=== PATIENT | male | born 1940 | race Caucasian/White ===

== ENCOUNTER 2016-06-20 06:04 | Day surgery (SDC) | payer MEDICARE, OTHER ==
[2016-06-14 10:42] LABS: HEMATOCRIT 36.1 % (37.9-51.0); HEMOGLOBIN 12.3 g/dL (13.5-17.0); HGB HCT DIFFERENCE 0.8; MEAN CORPUSCULAR HGB CONC 34.1 g/dL (32.0-36.0); MEAN CORPUSCULAR VOLUME 85 fl (80-97); RED BLOOD COUNT 4.24 10^6/uL (4.35-5.55); RED CELL DISTRIBUTION WIDTH 14.7 % (11.5-14.0); WHITE BLOOD COUNT 5.9 10^3/uL (4.0-10.5)
[2016-06-14 11:13] LABS: ANION GAP 13 (5-19); BLOOD UREA NITROGEN 31 mg/dL (7-20); CALCIUM 10.5 mg/dL (8.4-10.2); CARBON DIOXIDE 27 mmol/L (22-30); CHLORIDE 103 mmol/L (98-107); CREATININE RESULT 1.52 mg/dL (0.52-1.25); GLUCOSE 125 mg/dL (75-110); SODIUM 142.9 mmol/L (137-145)
--- NOTE | 2016-06-14 14:10 | EKG REPORT ---
SEVERITY:- DEFECTIVE ECG - SINUS RHYTHM. PT HAS SITUS INVERSUS AND DEXTROCARDIA. FIRST DEGREE AV BLOCK NONSPECIFIC T ABNORMALITIES, INFERIOR LEADS UNCHANGED. : Confirmed by: Zak Marroquin MD 14-Jun-2016 14:10:20
[~2016-06-20 06:04] MED LIST: CEFAZOLIN 1 GM/D5W RTU 1 GM/50 ML RTUPB IV PRN; LACTATED RINGERS 1000 ML IV PRN; LIDOCAINE 0.5% INJ-PF (5 MG/ML) 50 ML SDV SUBCUT PRN
[2016-06-20] MEDS ORDERED: LIDOCAINE 1%/EPINEPHRINE INJ 20 ML VIAL ONE (06:55)
[2016-06-20] MEDS ORDERED: SODIUM BICARBONATE 8.4% INJ 50 MEQ/50 ML DISP.SYRIN ONE (06:55)
[2016-06-20] MEDS ORDERED: FENTANYL CITRATE INJ/PF 100 MCG/2 ML AMPUL ONE (07:15)
[2016-06-20] MEDS ORDERED: PROPOFOL INJ 200 MG/20 ML VIAL IV ONE (07:16)
[2016-06-20] MEDS ORDERED: DEXMEDETOMIDINE INJ 80 MCG/20 ML VIAL IV ONE (07:16)
[2016-06-20] MEDS ORDERED: MIDAZOLAM 2 MG/2 ML INJ ONE (07:16)
[2016-06-20] MEDS ORDERED: KETAMINE HCL INJ 500 MG/10 ML VIAL ONE (08:20)
[2016-06-20] MEDS ORDERED: PROMETHAZINE HCL INJ 25 MG/1 ML VIAL IV PRN ×2 (08:39)
[2016-06-20] MEDS ORDERED: DIPHENHYDRAMINE HCL 50 MG/ML VIAL IV PRN (08:39)
[2016-06-20] MEDS ORDERED: FENTANYL CITRATE INJ/PF 100 MCG/2 ML AMPUL IV PRN ×3 (08:39)
[2016-06-20] MEDS ORDERED: MEPERIDINE HCL/PF INJ 25 MG/1 ML DISP.SYRIN IV PRN (08:39)
[2016-06-20] MEDS ORDERED: MORPHINE SULFATE 10 MG/ML INJ IV PRN (08:39)
[2016-06-20] MEDS ORDERED: OXYCODONE-ACETAMINOPHEN 5-325 MG TABLET PO PRN ×2 (08:39)
--- NOTE | 2016-06-20 09:41 | Operative Report ---
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 Patient was brought into the operating room and placed on the operating room table in a supine position. Patient was then prepped with a Betadine scrub and Betadine solution and draped in a sterile and aseptic manner. The area was then marked. 12 O'clock was marked towards the upper neck 3 O'clock was marked towards the left side 6:00 was marked towards the lower chest 9:00 was marked towards the right side The area was then anesthetized with 1% lidocaine with epinephrine and bicarbonate for its anesthetic and hemostatic effects. The area was then excised and marked at 12:00. We had considered a primary closure but this would go against the natural relaxed skin tension lines. A primary closure would be too tight and would have increased chance of dehiscence. This will leave more of a scar so we decided to use a boomerang flap reconstruction which would camouflage the scar better and take tension off of the closure so that would be less chances of complications. It was also decided to use this type of flap so that we would have the least amount of distortion of his horizontal wrinkles of his neck. Without creating the flap this would cause a distortion of the horizontal lines and make this very obvious. Flap allowed us to bring tissue from the chest up into the neck and stabilize this so that it would not distort the neck and used the excess that we can harvest from the chest. Then went ahead and outlined the flap and anesthetized it. Then incised the flap and developed a flap maintaining the subdermal plexus. Then we undermined 360 to allow for plate like scarring and minimize trap door deformity. Throughout the case hemostasis was achieved with the bipolar. We then sutured the flap into its new position Using 3-0 Vicryl for the subcutaneous and deep dermis. Skin was closed with a subcuticular stitch using 3-0 PDS with knots being tied on the outside. And 3-0 PDS suture was used for support and placed in the central area of the incision. We then applied tincture benzoin and Steri-Strips followed by a light pressure dressing. Patient was then reversed from anesthesia and taken to the [facility] for recovery. The patient tolerated well. There were no complications. Lesion size was proximally 3.7 cm please see pathology for actual size. Portions of this note may be dictated using [employer] voice recognition software. Occasional variations and spelling and vocabulary could be possible and are unintentional. Additionally, there is a chance that some errors may not be caught or corrected. Please notify the offer of any discrepancies noted or if any statements are unclear. Subjective: No complaints Objective: Vital signs stable afebrile No bleeding Dressing intact Assessment and plan: Doing well. Elevate the operative site. Resume medications. Take antibiotics for 1 day Follow-up Full instructions were given to the patient and family and they understand Portions of this note may be dictated using [employer] voice recognition software. Occasional variations and spelling and vocabulary could be possible and are unintentional. Additionally, there is a chance that some errors may not be caught or corrected. Please notify the offer of any discrepancies noted or if any statements are unclear.
--- NOTE | 2016-06-20 09:43 | PDOC DISCHARGE SUMMARY ---
Discharge Summary (SDC) - Discharge Final Diagnosis: Basal squamous cell carcinoma and basal cell carcinoma of the medial clavicle region Date of Surgery: 06/20/16 Condition: Good Treatment or Instructions: Leave the top dressing on for 2 days, then removed. Leave the steri-strip tapes on for 5 days, then removal. Then cleaning wound with peroxide and apply Neosporin/bacitracin 3 times per day. Antibiotics for 1 day, then discontinue. Elevate operative area to decrease swelling. Do not strain, or lift heavy objects. Call for excessive bleeding, increased temperature of 101, uncontrolled pain, or excessive nausea or vomiting. You may reach Dr. Easton through his office at [phone]. In the event of an emergency after hours, then contact Dr. Easton through [facility]. Return to the office for a postop check on . The time will be scheduled by the nursing staff of [facility] prior to discharge. Please give the patient a copy of their labs and EKG so they can bring this to their PMD. Thank you Portions of this note may be dictated using [employer] voice recognition software. Occasional variations and spelling and vocabulary could be possible and are unintentional. Additionally, there is a chance that some errors may not be caught or corrected. Please notify the offer of any discrepancies noted or if any statements are unclear. Discharge Diet: As Tolerated Discharge Activity: No Lifting/Push/Pulling, Slowly Increase Activity Report the Following to Your Physician Immediately: Unusual Bleeding - Discharged on, Increased Soreness
[2016-06-20 12:00] VITALS: BP 122/64
[2016-06-20] MEDS ORDERED: GLYCOPYRROLATE INJ 0.4 MG/2 ML VIAL ONE (14:29)
[2016-06-20] MEDS ORDERED: LIDOCAINE 2% INJ-PF (20 MG/ML) 10 ML AMPUL ONE (14:29)
== END 2016-06-20 11:25 | disposition home or self-care (01) ==
LOC: OROUT 06:04
PROVIDERS: ATTEND Plastic Surgery
PROC: 0HB5XZZ Excision of Chest Skin, External Approach (ICD-10-PCS; 2016-06-20)
PROC: 0HX5XZZ Transfer Chest Skin, External Approach (ICD-10-PCS; principal; 2016-06-20 08:00)
DX: C44.519 Basal cell carcinoma of skin of other part of trunk (principal); C44.529 Squamous cell carcinoma of skin of other part of trunk; E11.9 Type 2 diabetes mellitus without complications; I10 Essential (primary) hypertension; M19.90 Unspecified osteoarthritis, unspecified site; Z79.01 Long term (current) use of anticoagulants; Z79.899 Other long term (current) drug therapy; Z79.82 Long term (current) use of aspirin; Z79.84 Long term (current) use of oral hypoglycemic drugs
CPT/HCPCS: 93005; 36415 ×2; 82962; 84132; 85027; 85610; 85730; 80048; 88305 ×2; 88331 ×2; 88332 ×2; 93010; 14000; J2250; J0690; J3490 ×5; J2704; 450; J3010

== ENCOUNTER 2018-01-22 08:21 | Day surgery (SDC) | payer MEDICARE, OTHER ==
[2018-01-08 11:46] LABS: INTERNATIONAL RATION (INR) 0.91; PARTIAL THROMBOPLASTIN TIME 32.3 SEC (23.5-35.8); PROTHROMBIN TIME 12.7 SEC (11.4-15.4)
--- NOTE | 2018-01-08 13:17 | EKG REPORT ---
SEVERITY:- ABNORMAL ECG - SINUS OR ECTOPIC ATRIAL RHYTHM FIRST DEGREE AV BLOCK CONSIDER DEXTROCARDIA : Confirmed by: Zak Marroquin MD 08-Jan-2018 13:17:08
[~2018-01-22 08:21] MED LIST changes: +CEFAZOLIN 1 GM/D5W RTU 1 GM/50 ML RTUPB IV ONE; +LIDOCAINE 1%/EPINEPHRINE INJ 20 ML VIAL ONE; +POVIDONE-IODINE 5% OPH PREP SOLN 30 ML ONE; +SODIUM BICARBONATE 8.4% INJ 50 MEQ/50 ML DISP.SYRIN ONE
[2018-01-22 09:02] LABS: HEMATOCRIT 33.3 % (37.9-51.0); HEMOGLOBIN 11.3 g/dL (13.5-17.0); MEAN CORPUSCULAR HEMOGLOBIN 29.8 pg (27.0-33.4); MEAN CORPUSCULAR HGB CONC 33.9 g/dL (32.0-36.0); MEAN CORPUSCULAR VOLUME 88 fl (80-97); PLATELET COUNT 273 10^3/uL (150-450); RED BLOOD COUNT 3.78 10^6/uL (4.35-5.55); RED CELL DISTRIBUTION WIDTH 14.1 % (11.5-14.0); WHITE BLOOD COUNT 5.1 10^3/uL (4.0-10.5)
[2018-01-22 09:42] LABS: ANION GAP 10 (5-19); BLOOD UREA NITROGEN 33 mg/dL (7-20); CALCIUM 9.5 mg/dL (8.4-10.2); CARBON DIOXIDE 26 mmol/L (22-30); CHLORIDE 103 mmol/L (98-107); GLUCOSE 130 mg/dL (75-110); POTASSIUM 4.6 mmol/L (3.6-5.0)
[2018-01-22] MEDS ORDERED: KETAMINE HCL INJ 500 MG/10 ML VIAL ONE (10:33)
[2018-01-22] MEDS ORDERED: EPHEDRINE SULFATE INJ 50 MG/1 ML AMPULE ONE (10:34)
[2018-01-22] MEDS ORDERED: FENTANYL CITRATE INJ/PF 100 MCG/2 ML AMPUL ONE (10:34)
[2018-01-22] MEDS ORDERED: ACETAMINOPHEN 1,000 MG/100 ML RTUPB IV ONE (10:34)
[2018-01-22] MEDS ORDERED: MIDAZOLAM 2 MG/2 ML INJ ONE (10:34)
[2018-01-22] MEDS ORDERED: PROPOFOL INJ 200 MG/20 ML VIAL IV ONE ×2 (10:34→10:35)
[2018-01-22] MEDS ORDERED: ONDANSETRON HCL INJ/PF 4 MG/2 ML SDV IV PRN (12:12)
[2018-01-22] MEDS ORDERED: DIPHENHYDRAMINE HCL 50 MG/ML VIAL IV PRN (12:12)
[2018-01-22] MEDS ORDERED: PROMETHAZINE HCL INJ 25 MG/1 ML VIAL IV PRN (12:12)
[2018-01-22] MEDS ORDERED: FENTANYL CITRATE INJ/PF 100 MCG/2 ML AMPUL IV PRN ×3 (12:12)
[2018-01-22] MEDS ORDERED: MEPERIDINE HCL/PF INJ 25 MG/1 ML DISP.SYRIN IV PRN (12:12)
--- NOTE | 2018-01-22 12:37 | Operative Report ---
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 Patient was brought into the operating room and placed on the operating room table in a supine position. Patient was then prepped with a Betadine scrub and Betadine solution and draped in a sterile and aseptic manner. The area was then marked. 12 O'clock was marked towards the forehead scalp 3 O'clock was marked towards the ear 6:00 was marked towards the gel 9:00 was marked towards the medial canthus The area was then anesthetized with 1% lidocaine with epinephrine and bicarbonate for its anesthetic and hemostatic effects. The area was then excised and marked at 12:00. The specimen was sent for frozen section. The results came back that the deep and lateral margins were free. We had considered a primary closure but this would go against the natural relaxed skin tension lines. A primary closure would be too tight and would have increased chance of dehiscence. This will leave more of a scar so we decided to use a O to S flap reconstruction which would camouflage the scar better and take tension off of the closure so that would be less chances of complications. This flap would allow us to create a reconstruction that angles towards the lateral forehead right wrinkle lines and the base of the reconstruction will fall along the normal cheek relaxed skin tension lines so this should be able to camouflage the scar the best. Then we went ahead and outlined the flap and anesthetized it. We then incised the flap and developed a flap maintaining the subdermal plexus. Then we undermined 360 to allow for plate like scarring and minimize trap door deformity. Throughout the case hemostasis was achieved with the bipolar. We then sutured the flap into its new position using 5-0 Vicryl for the subcutaneous and deep dermis. Skin was closed with a running subcuticular suture stitch using 4-0 PDS with knots being tied on the outside. And 4-0 PDS suture was used for support and placed in the central area of the incision. We then applied tincture benzoin and Steri-Strips followed by a light pressure dressing. Patient was then reversed from anesthesia and taken to the [facility] for recovery. The patient tolerated well. There were no complications. Lesion size was approximately 1.4 cm please see pathology for actual size. Portions of this note may be dictated using [employer] voice recognition software. Occasional variations and spelling and vocabulary could be possible and are unintentional. Additionally, there is a chance that some errors may not be caught or corrected. Please notify the author of any discrepancies noted or if any statements are unclear. Subjective: No complaints Objective: Vital signs stable afebrile No bleeding Dressing intact Assessment and plan: Doing well. Elevate the operative site. Resume medications. Take antibiotics for 1 day Follow-up Full instructions were given to the patient and family and they understand Portions of this note may be dictated using [employer] voice recognition software. Occasional variations and spelling and vocabulary could be possible and are unintentional. Additionally, there is a chance that some errors may not be caught or corrected. Please notify the offer of any discrepancies noted or if any statements are unclear.
--- NOTE | 2018-01-22 12:38 | Operative Report ---
Operative Report DATE OF SURGERY: 01/22/18 PREOPERATIVE DIAGNOSIS: Squamous cell carcinoma of the zygomatic arch with positive deep margin POSTOPERATIVE DIAGNOSIS: Same OPERATION: Excision of squamous cell carcinoma from the left zygomatic arch with frozen section margin control and reconstruction with a O to S Plasty flap reconstruction SURGEON: BRITTNEY BARRIENTOS ANESTHESIA: LMAC TISSUE REMOVED OR ALTERED: Squamous cell carcinoma ESTIMATED BLOOD LOSS: Minimal INTRAOPERATIVE FINDINGS: Scar from squamous cell carcinoma with a positive deep margin
--- NOTE | 2018-01-22 12:39 | Discharge Summary ---
Discharge Summary (SDC) - Discharge Final Diagnosis: Squamous cell carcinoma from the left zygomatic arch Date of Surgery: 01/22/18 Condition: Good Treatment or Instructions: Leave the top dressing on for 2 days, then removed. Leave the steri-strip tapes on for 5 days, then removal. Then cleaning wound with peroxide and apply Neosporin/bacitracin 3 times per day. Antibiotics for 1 day, then discontinue. Elevate operative area to decrease swelling. Do not strain, or lift heavy objects. Call for excessive bleeding, increased temperature of 101, uncontrolled pain, or excessive nausea or vomiting. You may reach Dr. Easton through his office at [phone]. In the event of an emergency after hours, then contact Dr. Easton through [facility]. Return to the office for a postop check on . The time will be scheduled by the nursing staff of [facility] prior to discharge. Please give the patient a copy of their labs and EKG so they can bring this to their PMD. Thank you Portions of this note may be dictated using [employer] voice recognition software. Occasional variations and spelling and vocabulary could be possible and are unintentional. Additionally, there is a chance that some errors may not be caught or corrected. Please notify the offer of any discrepancies noted or if any statements are unclear. Referrals: WENDI STEINER JR, MD [Primary Care Provider] - Discharge Diet: As Tolerated Discharge Activity: No Lifting/Push/Pulling Report the Following to Your Physician Immediately: Unusual Bleeding - Keep head elevated. Do not sleep on the incision.
[2018-01-22] MEDS ORDERED: ONDANSETRON HCL INJ/PF 4 MG/2 ML SDV ONE (13:28)
[2018-01-22] MEDS ORDERED: DEXAMETHASONE SOD PHOSPHATE INJ 4 MG/1 ML VIAL ONE (13:28)
[2018-01-22] MEDS ORDERED: GLYCOPYRROLATE 1 MG/5 ML SYRINGE ONE (13:28)
[2018-01-22] MEDS ORDERED: METOCLOPRAMIDE HCL INJ/PF 10 MG/2 ML SDV ONE (13:28)
[2018-01-22] MEDS ORDERED: LIDOCAINE 2% INJ-PF (20 MG/ML) 2 ML AMPUL ONE (13:28)
[2018-01-22 14:10] VITALS: BP 112/61
== END 2018-01-22 14:00 | disposition home or self-care (01) ==
LOC: OROUT 08:21
PROVIDERS: ATTEND Plastic Surgery
DX: C44.329 Squamous cell carcinoma of skin of other parts of face (principal); E11.9 Type 2 diabetes mellitus without complications; I10 Essential (primary) hypertension; L57.8 Other skin changes due to chronic exposure to nonionizing radiation; I69.398 Other sequelae of cerebral infarction; H53.8 Other visual disturbances; Z79.82 Long term (current) use of aspirin; Z79.899 Other long term (current) drug therapy; Z79.84 Long term (current) use of oral hypoglycemic drugs
CPT/HCPCS: 93010; 93005; 36415 ×2; 85027; 85610; 85730; 80048; 88305 ×2; 88331 ×2; 14040; J2250; J0690; J1100; J3010; J3490 ×6; J2765; J2405; J2704; J0131; 300